=== PATIENT | female | born 1960 | race Caucasian/White ===

== ENCOUNTER 2017-03-22 19:07 | Emergency (ER) | payer SELFPAY | END 2017-03-22 20:19 | disposition home or self-care (01) | LOC: ER 19:07 | DX: M54.5 Low back pain (principal); F17.200 Nicotine dependence, unspecified, uncomplicated; W11.XXXA Fall on and from ladder, initial encounter; Y92.69 Other specified industrial and construction area as the place of occurrence of the external cause; Y99.0 Civilian activity done for income or pay | CPT/HCPCS: 72100; 72220; 96372; 99283 ==